=== PATIENT | female | born 1980 | race Caucasian/White ===

== ENCOUNTER 2020-04-25 05:15 | Inpatient (IN) | payer OTHER ==
[2020-04-25 06:30] LABS: BASO % 0.1 % (0-2.0); EOS % 0.1 % (0-4.5); HEMATOCRIT 29.5 % (32.4-45.2); HEMOGLOBIN 9.8 GM/dL (10.7-15.3); LYMPH % 9.8 % (8-40); MCH 26.8 pg (25.7-33.7); MCHC 33.2 g/dl (32.0-36.0); MEAN CELL VOLUME 80.9 fl (80-96); MEAN PLT VOLUME 8.6 fl (7.5-11.1); MONO % 3.3 % (3.8-10.2); NEUT % 86.7 % (42.8-82.8); RBC 3.64 M/mm3 (3.60-5.2); RDW 13.7 % (11.6-15.6); WHITE BLOOD COUNT 13.3 K/mm3 (4.0-10.0)
[2020-04-25 06:31] LABS: URINE APPEARANCE CLEAR; URINE BILIRUBIN NEGATIVE (NEGATIVE); URINE COLOR YELLOW; URINE GLUCOSE (UA) NEGATIVE (NEGATIVE); URINE KETONE 4+ (NEGATIVE); URINE LEUK ESTERASE NEGATIVE (NEGATIVE); URINE NITRITE NEGATIVE (NEGATIVE); URINE PROTEIN TRACE (NEGATIVE)
--- NOTE | 2020-04-25 06:40 | PD.OB.PROG ---
Past Medical History - Primary Care Physician Documenting Provider Type: Laborist - Admission Chief Complaint: [id number] weeks , abdominal and back pain History of Present Illness: 40 yo f 30 weeks c/o RT flank and upper abdominal pain since 11 pm last night , had 2 episode of n/v , no diarrhea, no dysuria, no hematuria, no fever , had chills ,no contractions or vaginal bleeding no loss of smell, no cough , no soar throat, no travel recently History Source: Patient Limitations to Obtaining History: No Limitations - Nursing Documentation Nursing Documentation Reviewed: Yes - Past Medical History ...: 2 ...Para: 0 ...Spon : 1 - Smoking History Have you smoked in the past 12 months: No - Alcohol/Substance Use Hx Alcohol Use: No History of Substance Use: reports: None - Social History Usual Living Arrangement: With Spouse History of Recent Travel: No Review of Systems - Review of Systems Constitutional: reports: Chills Eyes: reports: No Symptoms HENT: reports: No Symptoms Neck: reports: No Symptoms Cardiovascular: reports: No Symptoms Respiratory: reports: No Symptoms Gastrointestinal: reports: Abdominal Pain, Vomiting Genitourinary: reports: No Symptoms Breasts: reports: No Symptoms Reported Musculoskeletal: reports: No Symptoms Integumentary: reports: No Symptoms Neurological: reports: No Symptoms Endocrine: reports: No Symptoms Hematology/Lymphatic: reports: No Symptoms Psychiatric: reports: No Symptoms Physical Exam - Obstetrical Constitutional: Yes: Obese - Abdominal Exam/OB Fundal Height: 30 Number of Fetuses: Single Contractions: No Monitor Mode: External Heart Rate (range): 150/160 Heart Rate Location: [facility] Category: I Accelerations: Non-Uniform Decelerations: None - Vaginal Exam/OB Vaginal Exam Deferred: No Vaginal Bleeding: No Speculum Exam: No Dilatation (cm): closed Effacement (%): 0 Amniotic Membrane Status: Intact Station: -3 - Physical Exam Extremities: Yes: WNL Edema: Yes Edema: LLE: Trace, RLE: Trace Deep Tendon Reflex Grade: Normal +2 Psychiatric: Yes: WNL - Labs Lab Results: CBC, BMP 04/25/20 06:00 Problem List - Problems (1) Abdominal pain affecting Code(s): O26.899 - OTH RELATED CONDITIONS, UNSPECIFIED TRIMESTER; R10.9 - UNSPECIFIED ABDOMINAL PAIN Assessment/Plan r/o Pyelo r/o cholelithiasis r/o gastroenteritis plan cbc. cmp , amylase clean catch U/A and C/S renal and gallbladder sono iv hydration
[2020-04-25] MEDS ORDERED: CITRIC ACID/SODIUM CITRATE 30 ML UNIT-DOSE CUP PO ONE (06:52)
[2020-04-25 06:55] LABS: PLATELET COUNT 302 K/MM3 (134-434)
[2020-04-25] MEDS: ACETAMINOPHEN 1000 MG/100 ML VIAL (NON FORMULARY) IVPB PRN ×2 (07:15→20:20)
[2020-04-25 07:24] LABS: ALBUMIN 2.7 g/dl (3.4-5.0); BILIRUBIN,TOTAL 0.5 mg/dL (0.2-1); BLOOD UREA NITROGEN 9.8 mg/dL (7-18); CALCIUM 9.3 mg/dL (8.5-10.1); CREATININE 0.6 mg/dL (0.55-1.3); POTASSIUM 4.1 mmol/L (3.5-5.1); TOT PROT 6.8 g/dl (6.4-8.2)
[2020-04-25] MEDS ORDERED: BUTORPHANOL TARTRATE 1 MG/ML VIAL IVPB ONE (10:15)
[2020-04-25] MEDS ORDERED: PROMETHAZINE HCL 25 MG/1 ML VIAL IVPB ONE (10:15)
[2020-04-25] MEDS ORDERED: BUTORPHANOL TARTRATE 1 MG/ML VIAL ONE (10:35)
[2020-04-25] MEDS ORDERED: PROMETHAZINE HCL 25 MG/1 ML VIAL ONE (10:35)
[2020-04-25 10:47] VITALS: BMI 35.8
[2020-04-25] MEDS ORDERED: CEFTRIAXONE 1 GM in DEXTROSE 5%-WATER - 50 ML IVPB ONE (11:00)
[2020-04-25 11:51] LABS: EPI CELLS >36 /uL (0-25.1); HYALINE CASTS 10 /uL (0-3.1); URINE BACTERIA 430 /uL (0-1359); URINE RBC 6 /uL (0-23.9); URINE WBC 14 /uL (0-25.8)
[2020-04-25] MEDS ORDERED: ONDANSETRON 4 MG/2 ML VIAL IVPB PRN (14:19)
--- NOTE | 2020-04-25 14:26 | HP ---
Past Medical History - Primary Care Physician PCP:: Len Beard - Admission Chief Complaint: rt flank and upper abdominal pain, 30 weeks History of Present Illness: 40 yo f 30 weeks, c/o Rt flank pain and upper abdominal pain since last night, no dysuria, mo hematuria, had two episode of vomiting, no fever, had chills , no diarrhea no vaginal bleeding , no soar throat or loss of smell , good fm, no contraction, admitted to r/o pyelo History Source: Patient Limitations to Obtaining History: No Limitations - Past Medical History ...: 2 ...Para: 0 ...Term: 0 ...: 0 ...Spon : 1 ...Induced : 1 ...Living Children: 0 ...EDC by Sono: 07/02/20 Heme/Onc: Yes: Anemia - Past Surgical History Hx Myomectomy: No Hx Transabdominal Cerclage: No - Smoking History Smoking history: Never smoked Have you smoked in the past 12 months: No - Alcohol/Substance Use Hx Alcohol Use: No History of Substance Use: reports: None - Social History Usual Living Arrangement: Yes: With Spouse History of Recent Travel: No Home Medications - Allergies Allergies/Adverse Reactions: Allergies Allergy/AdvReac Type Severity Reaction Status Date / Time No Known Allergies Allergy Verified 04/25/20 11:22 - Home Medications Home Medications: Ambulatory Orders Tablet 1 tablet PO DAILY 04/25/20 Review of Systems - Review of Systems Constitutional: reports: Chills Eyes: reports: No Symptoms HENT: reports: No Symptoms Neck: reports: No Symptoms Respiratory: reports: No Symptoms Gastrointestinal: reports: Abdominal Pain, Vomiting Breasts: reports: No Symptoms Reported Musculoskeletal: reports: No Symptoms Integumentary: reports: No Symptoms Neurological: reports: No Symptoms Endocrine: reports: No Symptoms Hematology/Lymphatic: reports: No Symptoms Psychiatric: reports: No Symptoms Physical Exam - Maternity Vital Signs: Vital Signs Temperature 98.7 F 04/25/20 13:00 Pulse Rate 82 04/25/20 13:00 Respiratory Rate 18 04/25/20 13:00 Blood Pressure 104/61 04/25/20 13:00 O2 Sat by Pulse Oximetry (%) Constitutional: Yes: Moderate Distress Eyes: Yes: WNL HENT: Yes: WNL Neck: Yes: WNL Cardiovascular: Yes: WNL Lungs: Clear to auscultation Breast(s): Yes: WNL - Abdominal Exam/OB Fundal Height: 30 Number of Fetuses: Single Presentation: Vertex Contractions: No Intensity: Unaware Monitor Mode: External Heart Rate Location: [facility] Category: I Accelerations: Non-Uniform - Vaginal Exam/OB Vaginal Bleeding: No Speculum Exam: No Dilatation (cm): closed Effacement (%): 0 Amniotic Membrane Status: Intact Presentation: Vertex/Position Station: -4 - Physical Exam Musculoskeletal: Yes: WNL Extremities: Yes: WNL Edema: Yes Edema: LLE: Trace, RLE: Trace Deep Tendon Reflex Grade: Normal +2 Psychiatric: Yes: WNL - Labs Lab Results: CBC, BMP 04/25/20 06:00 04/25/20 06:00 Hemorrhage Risk Assessment - Risk Factors Medium Risk Factors: Yes: None High Risk Factors: Yes: None Risk Score: 1 Risk Level: Medium Risk Problem List - Problems (1) Abdominal pain affecting Code(s): O26.899 - OTH RELATED CONDITIONS, UNSPECIFIED TRIMESTER; R10.9 - UNSPECIFIED ABDOMINAL PAIN (2) Pyelonephritis affecting Code(s): O23.00 - INFECTIONS OF KIDNEY IN , UNSPECIFIED TRIMESTER Qualifiers: Trimester: third trimester Qualified Code(s): O23.03 - Infections of kidney in , third trimester Assessment/Plan admit U/A .C/S iv antibiotics revaluation FHM pain management
[2020-04-25] MEDS: DEXTROSE 5%-LACTATED RINGERS 1,000 ML IV SCH (20:21)
[2020-04-25] MEDS: oxyCODONE HCL 5 MG TABLET PO PRN (21:53)
[2020-04-26] MEDS: ACETAMINOPHEN 1000 MG/100 ML VIAL (NON FORMULARY) IVPB PRN (04:54)
[2020-04-26 08:27] LABS: BASO % 0.2 % (0-2.0); EOS % 0.9 % (0-4.5); HEMATOCRIT 26.9 % (32.4-45.2); HEMOGLOBIN 8.9 GM/dL (10.7-15.3); MCH 26.6 pg (25.7-33.7); MCHC 32.9 g/dl (32.0-36.0); MEAN CELL VOLUME 80.9 fl (80-96); MEAN PLT VOLUME 8.4 fl (7.5-11.1); MONO % 8.1 % (3.8-10.2); NEUT % 74.8 % (42.8-82.8); PLATELET COUNT 262 K/MM3 (134-434); RBC 3.33 M/mm3 (3.60-5.2); RDW 14.2 % (11.6-15.6); WHITE BLOOD COUNT 11.3 K/mm3 (4.0-10.0)
[2020-04-26] MEDS: oxyCODONE HCL 5 MG TABLET PO PRN (08:30)
[2020-04-26 08:59] LABS: ALBUMIN 2.3 g/dl (3.4-5.0); BILIRUBIN,TOTAL 0.6 mg/dL (0.2-1); BLOOD UREA NITROGEN 6.3 mg/dL (7-18); CALCIUM 8.9 mg/dL (8.5-10.1); CREATININE 0.5 mg/dL (0.55-1.3); POTASSIUM 3.9 mmol/L (3.5-5.1); TOT PROT 6.1 g/dl (6.4-8.2)
[2020-04-26] MEDS ORDERED: cefTRIAXone SODIUM 1 GM VIAL ONE (09:44)
[2020-04-26] MEDS ORDERED: DEXTROSE 5%-WATER - 50 ML IVPB ONE (09:45)
[2020-04-26] MEDS: CEFTRIAXONE 1 GM in DEXTROSE 5%-WATER - 50 ML IVPB SCH (09:49)
[2020-04-26] MEDS: PRENATAL VITAMINS W/ FOLIC ACID TABLET (FP) PO SCH (09:54)
--- NOTE | 2020-04-26 12:33 | PN ---
Progress Note (short form) - Note Progress Note: HD1 , feels much better, but still has mild flank pain , no dysuria, no hematuria, no n/v, no contraction, no vaginal bleeding Last Vital Signs Temp Pulse Resp BP Pulse Ox 98.1 F 90 18 92/61 98 04/26/20 08:46 04/26/20 08:46 04/26/20 08:46 04/26/20 08:46 04/25/20 22:00 CBC, BMP 04/26/20 07:54 04/26/20 07:54 abdomen soft, no distension , mild RT cva tenderness , BS present uterus non tender , no contraction felt NST reactive no contraction urine culture pending abdominal sono , positve for gallbladder sluge , renal normal bpp8/8 plan cont iv antibiotics , pending result of urine c/s iron and pnv for anemia pain management nst twice daily ambulate Problem List - Problems (1) Abdominal pain affecting Code(s): O26.899 - OTH RELATED CONDITIONS, UNSPECIFIED TRIMESTER; R10.9 - UNSPECIFIED ABDOMINAL PAIN (2) Pyelonephritis affecting Code(s): O23.00 - INFECTIONS OF KIDNEY IN , UNSPECIFIED TRIMESTER Qualifiers: Trimester: third trimester Qualified Code(s): O23.03 - Infections of kidney in , third trimester
[2020-04-26] MEDS ORDERED: ACETAMINOPHEN INJECTION 100 ML IVPB ONE (13:13)
[2020-04-26] MEDS: ACETAMINOPHEN 325 MG TABLET (FP) PO PRN ×2 (13:43→20:17)
[2020-04-26] MEDS: DEXTROSE 5%-LACTATED RINGERS 1,000 ML IV SCH (15:37)
[2020-04-27] MEDS: ACETAMINOPHEN 325 MG TABLET (FP) PO PRN ×2 (02:19→08:25)
[2020-04-27] MEDS ORDERED: cefTRIAXone SODIUM 1 GM VIAL ONE (09:26)
[2020-04-27] MEDS ORDERED: DEXTROSE 5%-WATER - 50 ML IVPB ONE (09:26)
[2020-04-27] MEDS: CEFTRIAXONE 1 GM in DEXTROSE 5%-WATER - 50 ML IVPB SCH (09:29)
[2020-04-27] MEDS: oxyCODONE HCL 5 MG TABLET PO PRN (09:35)
[2020-04-27 10:02] VITALS: BP 91/62; PULSE 93; TEMP 97.6
[2020-04-27 11:52] LABS: BASO % 0.2 % (0-2.0); EOS % 1.9 % (0-4.5); HEMATOCRIT 29.2 % (32.4-45.2); HEMOGLOBIN 9.4 GM/dL (10.7-15.3); LYMPH % 16.4 % (8-40); MCH 26.6 pg (25.7-33.7); MCHC 32.3 g/dl (32.0-36.0); MEAN CELL VOLUME 82.2 fl (80-96); MEAN PLT VOLUME 8.6 fl (7.5-11.1); MONO % 7.8 % (3.8-10.2); NEUT % 73.7 % (42.8-82.8); PLATELET COUNT 292 K/MM3 (134-434); RBC 3.56 M/mm3 (3.60-5.2); RDW 14.3 % (11.6-15.6); WHITE BLOOD COUNT 12.5 K/mm3 (4.0-10.0)
[2020-04-27 12:23] LABS: ALBUMIN 2.5 g/dl (3.4-5.0); BILIRUBIN,TOTAL 0.5 mg/dL (0.2-1); BLOOD UREA NITROGEN 5.8 mg/dL (7-18); CREATININE 0.5 mg/dL (0.55-1.3); POTASSIUM 3.8 mmol/L (3.5-5.1); TOT PROT 6.7 g/dl (6.4-8.2)
[2020-04-27] MEDS: PRENATAL VITAMINS W/ FOLIC ACID TABLET (FP) PO SCH (12:23)
--- NOTE | 2020-04-28 08:03 | DS ---
Physical Exam-PEDIATRIC CNS Vital Signs: Vital Signs Temperature 97.6 F 04/27/20 09:00 Pulse Rate 93 H 04/27/20 09:00 Respiratory Rate 18 04/27/20 09:00 Blood Pressure 91/62 04/27/20 09:00 O2 Sat by Pulse Oximetry (%) 98 04/25/20 22:00 Constitutional: Yes: Well Nourished, No Distress, Calm Eyes: Yes: WNL, Conjunctiva Clear, EOM Intact HENT: Yes: WNL, Atraumatic, Normocephalic Neck: Yes: WNL, Supple, Trachea Midline Cardiovascular: Yes: WNL, Regular Rate and Rhythm Respiratory: Yes: WNL, Regular, CTA Bilaterally Gastrointestinal: Yes: WNL ...Rectal Exam: Yes: WNL Renal/: Yes: WNL External Genitalia: Yes: Normal Vaginal Exam: Yes: Normal Cervix: Yes: Normal Uterus: Yes: Other (30 weeks, non tender, no contraction felt) Breast(s): Yes: WNL Musculoskeletal: Yes: WNL Extremities: Yes: WNL Edema: LLE: Trace, RLE: Trace Integumentary: Yes: WNL Neurological: Yes: WNL, Alert, Oriented ...Motor Strength: WNL Psychiatric: Yes: WNL, Alert, Oriented Labs: CBC, BMP 04/27/20 11:15 04/27/20 11:15 Discharge Summary Problems reviewed: Yes Reason For Visit: PYELONEPHRITIS abdominal , Rt flank pain Hospital Course: txed with Rocephin , improved Plan of Treatment: followup office on Tuesday Condition: Good - Instructions Diet, Activity, Other Instructions: regular diet, follow up office on Tuesday, if fever, pain, N/V call Referrals: Len Beard MD [Staff Physician] - Disposition: HOME - Home Medications Comprehensive Discharge Medication List: Ambulatory Orders Tablet 1 tablet PO DAILY 04/25/20 Amoxicillin 875 mg PO BID #10 tablet 04/27/20 Amoxicillin 875 mg PO BID #10 tablet 04/27/20 Ferrous Sulfate 325 mg PO BID 90 Days #180 tablet 04/27/20
== END 2020-04-27 15:30 | disposition home or self-care (01) | DRG 833 ==
LOC: JDEL 05:15 → JLDR 10:00 → J3W 14:00
PROVIDERS: ADMIT Obstetrics & Gynecology; ATTEND Obstetrics & Gynecology
DX: O23.03 Infections of kidney in pregnancy, third trimester (principal); O26.893 Other specified pregnancy related conditions, third trimester; R10.10 Upper abdominal pain, unspecified; R11.2 Nausea with vomiting, unspecified; O99.013 Anemia complicating pregnancy, third trimester; D64.9 Anemia, unspecified; Z3A.30 30 weeks gestation of pregnancy
CPT/HCPCS: 36415; 76700-TC; 76775-TC; 76815; 80053; 81003; 82150; 83690; 85025; 87040; 87086; J0131; U0003

== ENCOUNTER 2020-06-26 22:54 | Inpatient (IN) | payer OTHER ==
[2020-06-27 00:50] VITALS: BMI 38.4
[2020-06-27 02:21] LABS: BASO % 0.3 % (0-2.0); EOS % 1.6 % (0-4.5); HEMATOCRIT 32.2 % (32.4-45.2); HEMOGLOBIN 10.7 GM/dL (10.7-15.3); LYMPH % 27.1 % (8-40); MCH 27.5 pg (25.7-33.7); MCHC 33.3 g/dl (32.0-36.0); MEAN CELL VOLUME 82.5 fl (80-96); MEAN PLT VOLUME 9.7 fl (7.5-11.1); MONO % 6.9 % (3.8-10.2); NEUT % 64.1 % (42.8-82.8); PLATELET COUNT 247 K/MM3 (134-434); RBC 3.91 M/mm3 (3.60-5.2); RDW 17.3 % (11.6-15.6)
[2020-06-27 02:35] LABS: INR 0.93 (0.83-1.09)
[2020-06-27] MEDS ORDERED: PROMETHAZINE HCL 25 MG/1 ML VIAL IVPUSH ONE (02:40)
[2020-06-27] MEDS ORDERED: BUTORPHANOL TARTRATE 1 MG/ML VIAL IVPUSH ONE (02:40)
[2020-06-27 02:43] LABS: BLOOD UREA NITROGEN 15.4 mg/dL (7-18); CALCIUM 9.1 mg/dL (8.5-10.1); CREATININE 0.7 mg/dL (0.55-1.3); POTASSIUM 4.1 mmol/L (3.5-5.1)
[2020-06-27] MEDS ORDERED: DEXTROSE 5%-LACTATED RINGERS 1,000 ML IV SCH (02:45)
[2020-06-27] MEDS ORDERED: OXYTOCIN 30 UNITS in 0.9% NS 30 UNIT/500 ML INFUS.BAG IVPB SCH (02:45)
--- NOTE | 2020-06-27 02:47 | HP ---
Past Medical History - Primary Care Physician PCP:: Len Beard - Admission Chief Complaint: 39 weeks, ROM, labor, AMA History of Present Illness: 40 yo f 39 weeks with c/o of lekage of fluid from vagina and contraction, , History Source: Patient Limitations to Obtaining History: No Limitations - Past Medical History ...: 2 ...Para: 0 ...Term: 0 ...: 0 ...Spon : 0 ...Induced : 1 ...Living Children: 0 ...LMP: 09/27/19 ... Weeks Gestation by Dates: 39.1 ...EDC by Dates: 07/03/20 ...EDC by Sono: 07/02/20 Heme/Onc: Yes: Anemia - Past Surgical History Hx Myomectomy: No Hx Transabdominal Cerclage: No - Smoking History Smoking history: Never smoked Have you smoked in the past 12 months: No - Alcohol/Substance Use Hx Alcohol Use: No History of Substance Use: reports: None - Social History Usual Living Arrangement: Yes: With Spouse History of Recent Travel: No Home Medications - Allergies Allergies/Adverse Reactions: Allergies Allergy/AdvReac Type Severity Reaction Status Date / Time No Known Allergies Allergy Verified 04/25/20 11:22 - Home Medications Home Medications: Ambulatory Orders Tablet 1 tablet PO DAILY 04/25/20 Ferrous Sulfate 325 mg PO BID 90 Days #180 tablet 04/27/20 Review of Systems - Review of Systems Constitutional: reports: No Symptoms Eyes: reports: No Symptoms HENT: reports: No Symptoms Neck: reports: No Symptoms Cardiovascular: reports: No Symptoms Respiratory: reports: No Symptoms Gastrointestinal: reports: No Symptoms Genitourinary: reports: No Symptoms Breasts: reports: No Symptoms Reported Musculoskeletal: reports: No Symptoms Integumentary: reports: No Symptoms Neurological: reports: No Symptoms Endocrine: reports: No Symptoms Hematology/Lymphatic: reports: No Symptoms Psychiatric: reports: No Symptoms Physical Exam - Maternity Vital Signs: Vital Signs Temperature 98.3 F 06/27/20 00:40 Pulse Rate 89 06/27/20 00:40 Respiratory Rate 18 06/27/20 00:40 Blood Pressure 133/75 06/27/20 00:40 O2 Sat by Pulse Oximetry (%) Constitutional: Yes: Obese Eyes: Yes: WNL, Conjunctiva Clear, EOM Intact HENT: Yes: WNL, Atraumatic, Normocephalic Neck: Yes: WNL, Supple, Trachea Midline Cardiovascular: Yes: WNL, Regular Rate and Rhythm Breast(s): Yes: WNL - Abdominal Exam/OB Fundal Height: 38 Number of Fetuses: Single Presentation: Vertex Contractions: Yes Regularity: Irregular Intensity: Mild/Mod Monitor Mode: External Heart Rate Location: [facility] Category: I Accelerations: Non-Uniform Decelerations: None - Vaginal Exam/OB Vaginal Bleeding: No Speculum Exam: No Dilatation (cm): 1 Effacement (%): 50 Amniotic Membrane Status: Leaking Nitrazine Test: Positive Presentation: Vertex/Position Station: -3 - Physical Exam Musculoskeletal: Yes: WNL Extremities: Yes: WNL Edema: Yes Edema: LLE: Trace, RLE: Trace Deep Tendon Reflex Grade: Normal +2 ...Motor Strength: WNL Psychiatric: Yes: WNL - Labs Lab Results: CBC, BMP 06/27/20 01:45 Hemorrhage Risk Assessment - Risk Factors Medium Risk Factors: Yes: None High Risk Factors: Yes: None Risk Score: 1 Risk Level: Medium Risk Problem List - Problems (1) with 39 completed weeks gestation Code(s): Z3A.39 - 39 WEEKS GESTATION OF (2) ROM (rupture of membranes), premature Code(s): O42.90 - ALISE ROM, 7TH0 BETW RUPT & ONST LABR, UNSP WEEKS OF GEST Qualifiers: PROM onset of labor timing: unspecified duration between rupture of membranes and onset of labor PROM gestational age: full term Qualified Code(s): O42.92 - Full-term premature rupture of membranes, unspecified as to length of time between rupture and onset of labor (3) AMA (advanced maternal age) multigravida 35+ Code(s): O09.529 - SUPERVISION OF ELDERLY MULTIGRAVIDA, UNSPECIFIED TRIMESTER (4) AMA (advanced maternal age) primigravida 35+ Code(s): O09.519 - SUPERVISION OF ELDERLY PRIMIGRAVIDA, UNSPECIFIED TRIMESTER Qualifiers: Trimester: third trimester Qualified Code(s): O09.513 - Supervision of elderly primigravida, third trimester Assessment/Plan admit fhm pitocin stimulation, pain management
[2020-06-27] MEDS ORDERED: PROMETHAZINE HCL 25 MG/1 ML VIAL ONE (03:13)
[2020-06-27] MEDS ORDERED: BUTORPHANOL TARTRATE 2 MG/ML VIAL ONE (03:13)
[2020-06-27] MEDS: ELECTROLYTE-148 SOLN 1,000 ML IV SCH ×2 (07:30→10:42)
[2020-06-27] MEDS ORDERED: FENTANYL/BUPIVACAINE/NS/PF - PCEA - 50 ML DISP.SYRIN EP ONE ×4 (07:34→17:41)
[2020-06-27] MEDS ORDERED: PCA PUMP NR ONE ×2 (07:34→21:06)
[2020-06-27] MEDS ORDERED: NALOXONE HCL 0.4 MG/ML VIAL IVPUSH PRN (07:41)
[2020-06-27] MEDS ORDERED: LIDO 2%/EPI 1:200000 PRESRVFRE (20 ML SDVIAL) ONE (07:44)
[2020-06-27] MEDS ORDERED: FENTANYL/BUPIVACAINE/NS/PF - PCEA - 50 ML DISP.SYRIN EP SCH (07:45)
--- NOTE | 2020-06-27 08:01 | PN ---
Progress Note (short form) - Note Progress Note: cx 4 cm 80 vx -3 mr ,fhr cat 1, regular contraction, wants epidural Problem List - Problems (1) with 39 completed weeks gestation Code(s): Z3A.39 - 39 WEEKS GESTATION OF (2) ROM (rupture of membranes), premature Code(s): O42.90 - ALISE ROM, 7TH0 BETW RUPT & ONST LABR, UNSP WEEKS OF GEST Qualifiers: PROM onset of labor timing: unspecified duration between rupture of membranes and onset of labor PROM gestational age: full term Qualified Code(s): O42.92 - Full-term premature rupture of membranes, unspecified as to length of time between rupture and onset of labor (3) AMA (advanced maternal age) multigravida 35+ Code(s): O09.529 - SUPERVISION OF ELDERLY MULTIGRAVIDA, UNSPECIFIED TRIMESTER (4) AMA (advanced maternal age) primigravida 35+ Code(s): O09.519 - SUPERVISION OF ELDERLY PRIMIGRAVIDA, UNSPECIFIED TRIMESTER Qualifiers: Trimester: third trimester Qualified Code(s): O09.513 - Supervision of elderly primigravida, third trimester
--- NOTE | 2020-06-27 11:25 | PN ---
Ante-Partal Exam - Subjective Subjective: No complaints. The epidural was replaced. Vital Signs: Vital Signs Temperature 97.9 F 06/27/20 02:00 Pulse Rate 75 06/27/20 08:15 Respiratory Rate 20 06/27/20 08:15 Blood Pressure 119/65 06/27/20 08:15 O2 Sat by Pulse Oximetry (%) 99 06/27/20 08:15 Bleeding: No Headache: No Visual changes: No Right upper quadrant pain: No Pain (scale 1-10): 0 - Contractions Contractions: Yes Regularity: Regular Intensity: Mild/Mod Monitor Mode: External - Exam during Labor Heart Rate: 150 Variability: Moderate Heart Rate Location: Midline Category: I Monitor Accelerations: Present Monitor Decelerations: None Exam: Vaginal Dilatation (cm): 4 Effacement (%): 80 Amniotic Membrane Status: Leaking Amniotic Fluid: Clear Presentation: Vertex Station: 0 Remarks: Gynecoid pelvimetry, EFW 3700 gram by Romeo maneuvers. - Intrapartum Hemorrhage Risk Medium Risk Factors: None High Risk Factors: None Risk Score: 0 Risk Level: Low Risk - Assessment/Plan Assessment/Plan: 40yo P0 with at EGA 39wks admitted with PROM undergoing labor indx w/pitocin. The pitocin is now at 10 mU. pt is comfortable with epidural. Labor in early active phase with protracted progress. Plan to continue pitocin. Fetus with Category I tracing and requires no intervention.
[2020-06-27] MEDS ORDERED: BUPIVACAINE HCL/PF 0.25% (2.5MG/ML) 10 ML VIAL ONE ×2 (15:10→17:07)
--- NOTE | 2020-06-27 16:21 | PN ---
Ante-Partal Exam - Subjective Subjective: Pt with pelvic pressure. Vital Signs: Vital Signs Temperature 98.3 F 06/27/20 14:00 Pulse Rate 97 H 06/27/20 15:45 Respiratory Rate 20 06/27/20 15:45 Blood Pressure 125/84 06/27/20 15:45 O2 Sat by Pulse Oximetry (%) 100 06/27/20 15:45 Bleeding: No Headache: No Visual changes: No Right upper quadrant pain: No Pain (scale 1-10): 2 - Contractions Contractions: Yes (q3min) Regularity: Regular Intensity: Moderate Monitor Mode: External - Exam during Labor Heart Rate: 150 Variability: Moderate Heart Rate Location: Midline Category: I Monitor Accelerations: Present Monitor Decelerations: None Exam: Vaginal Dilatation (cm): 6 Effacement (%): 90 Amniotic Membrane Status: Leaking Amniotic Fluid: Clear Presentation: Vertex Station: 0 Remarks: Adequate gynecoid pelvimetry. - Intrapartum Hemorrhage Risk Medium Risk Factors: None High Risk Factors: None Risk Score: 0 Risk Level: Low Risk - Assessment/Plan Assessment/Plan: 40yo P0 with at EGA 39 wks progressed to active phase of pabor. The pt has a protracted labor course. The contractions appear adequate. The tracing is Category I. Plan to monitor labor progress.
[2020-06-27] MEDS: ACETAMINOPHEN 1000 MG/100 ML VIAL (NON FORMULARY) IVPB PRN (18:25)
[2020-06-27] MEDS ORDERED: ACETAMINOPHEN INJECTION 100 ML IVPB ONE (18:26)
[2020-06-27] MEDS ORDERED: AMPICILLIN - 2 GM in SODIUM CHLORIDE 100 ML IVPB SCH (18:30)
[2020-06-27] MEDS ORDERED: AMPICILLIN SODIUM 2 GM VIAL ONE (18:37)
--- NOTE | 2020-06-27 18:37 | PN ---
Ante-Partal Exam - Subjective Subjective: No complaints Vital Signs: Vital Signs Temperature 100.1 F H 06/27/20 18:24 Pulse Rate 93 H 06/27/20 18:15 Respiratory Rate 20 06/27/20 18:15 Blood Pressure 127/66 06/27/20 18:15 O2 Sat by Pulse Oximetry (%) 100 06/27/20 18:15 Bleeding: No Headache: No Visual changes: No Right upper quadrant pain: No Pain (scale 1-10): 0 - Contractions Contractions: Yes Regularity: Regular Intensity: Mod/Strong Monitor Mode: External - Exam during Labor Heart Rate: 170 Variability: Moderate Heart Rate Location: Midline Category: I Monitor Accelerations: Present Monitor Decelerations: None Exam: Vaginal Dilatation (cm): 7 Effacement (%): 90 Amniotic Membrane Status: Leaking Amniotic Fluid: Clear Presentation: Vertex Station: +1 - Intrapartum Hemorrhage Risk Medium Risk Factors: None High Risk Factors: None Risk Score: 0 Risk Level: Low Risk - Assessment/Plan Assessment/Plan: P0 with protracted active labor. Possible early chorio. Will start IV abx and Tylenol. Continue to monitor labor progress.
[2020-06-27] MEDS ORDERED: GENTAMICIN 80 MG PREMIXED IVPB 80 MG/100 ML BAG IVPB SCH (19:00)
[2020-06-27] MEDS ORDERED: GENTAMICIN SO4 80 MG/2 ML VIAL ONE (19:19)
[2020-06-27] MEDS ORDERED: WITCH HAZEL 50% (TUCKS) 40 PAD/JAR PAD TP PRN (20:58)
[2020-06-27] MEDS ORDERED: METHYLERGONOVINE MALEATE 0.2 MG/1 ML AMP IM PRN (20:58)
[2020-06-27] MEDS ORDERED: BENZOCAINE 20% 57 GM BOTTLE TP PRN (20:58)
[2020-06-27] MEDS ORDERED: BISACODYL 10 MG SUPP.RECT RC PRN (20:58)
[2020-06-27] MEDS ORDERED: BENZOCAINE 28 GM HEMORRHOIDAL OINTMENT TP PRN (20:58)
[2020-06-27] MEDS ORDERED: OXYTOCIN 20 UNITS in 0.9% NS 20 UNIT/1,000 ML INFUS.BAG IV SCH (21:00)
[2020-06-27] MEDS ORDERED: CLINDAMYCIN PHOSPHATE 600 MG/4 ML VIAL ONE (21:05)
[2020-06-27] MEDS ORDERED: OXYTOCIN 20 UNITS in 0.9% NS 20 UNIT/1,000 ML INFUS.BAG IV ONE (22:05)
[2020-06-27] MEDS ORDERED: IBUPROFEN 600 MG TABLET (FP) PO ONE (23:21)
[2020-06-27] MEDS ORDERED: ACETAMINOPHEN 325 MG TABLET (FP) ONE (23:22)
[2020-06-27] MEDS: ACETAMINOPHEN 325 MG TABLET (FP) PO PRN (23:26)
[2020-06-27] MEDS: IBUPROFEN 600 MG TABLET (FP) PO PRN (23:29)
[2020-06-27 23:35] LABS: CORD BASE EXCESS -9.5 mmol/L (0-2); CORD HCO3 19.9 mmHg (20-29); CORD PCO2 57.5 mmHg (30-78); CORD pH 7.157 (7.14-7.44)
[2020-06-27 23:38] LABS: CORD HCO3 19.7 mmHg (20-29); CORD PCO2 44.2 mmHg (30-78); CORD pH 7.268 (7.14-7.44)
[2020-06-28] MEDS: AMPICILLIN - 2 GM in SODIUM CHLORIDE 100 ML IVPB SCH ×4 (02:05→14:31)
[2020-06-28] MEDS: GENTAMICIN 80 MG PREMIXED IVPB 80 MG/100 ML BAG IVPB SCH ×3 (02:06→09:56)
[2020-06-28] MEDS: CLINDAMYCIN 600MG PREMIX IVPB 600 MG/50 ML BAG IVPB SCH ×3 (02:08→17:36)
[2020-06-28] MEDS: ACETAMINOPHEN 1000 MG/100 ML VIAL (NON FORMULARY) IVPB PRN (08:00)
[2020-06-28 08:46] LABS: BASO % 0.2 % (0-2.0); EOS % 0.6 % (0-4.5); MCH 27.7 pg (25.7-33.7); MCHC 33.3 g/dl (32.0-36.0); MEAN CELL VOLUME 83.1 fl (80-96); MEAN PLT VOLUME 9.4 fl (7.5-11.1); MONO % 4.8 % (3.8-10.2); NEUT % 81.4 % (42.8-82.8); PLATELET COUNT 214 K/MM3 (134-434); RBC 3.25 M/mm3 (3.60-5.2); RDW 17.8 % (11.6-15.6); WHITE BLOOD COUNT 19.5 K/mm3 (4.0-10.0)
[2020-06-28] MEDS: PRENATAL VITAMINS W/ FOLIC ACID TABLET (FP) PO SCH (09:53)
[2020-06-28] MEDS: IBUPROFEN 600 MG TABLET (FP) PO PRN ×2 (11:52→20:57)
[2020-06-28] MEDS: ACETAMINOPHEN 325 MG TABLET (FP) PO PRN (20:58)
[2020-06-28] MEDS ORDERED: SENNOSIDES/DOCUSATE COMBO (SENNA PLUS) TABLET (UD) PO PRN (22:00)
[2020-06-29] MEDS: IBUPROFEN 600 MG TABLET (FP) PO PRN (09:14)
[2020-06-29] MEDS: PRENATAL VITAMINS W/ FOLIC ACID TABLET (FP) PO SCH (09:14)
--- NOTE | 2020-06-29 11:22 | PN ---
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 Manual removal of placenta was done due to failure of placenta to deliver spontaneously and heavy bleeding noted after ~20 minutes from delivery. The bimanual uterine massage was done immediately after the manual placental delivery. The uterus was noted to be firm and well contracted, excellent hemostasis. A 2nd degree perineal/vaginal laceration was repaired w/o complications.
--- NOTE | 2020-06-29 11:28 | PN ---
Post Progress Note - Subjective Subjective: Patient without acute complaints. Reports tolerating oral intake without nausea or vomiting. Ambulating without dizziness. Denies fevers or chills. Pain well controlled with oral pain medication. Pumping/breast feeding without issue. Passing flatus, no BM. Reports feels constipated Post Day: 2 Type of Delivery: Vital Signs: Vital Signs Temperature 98.8 F 06/28/20 22:00 Pulse Rate 96 H 06/28/20 22:00 Respiratory Rate 18 06/28/20 22:00 Blood Pressure 100/62 06/28/20 22:00 O2 Sat by Pulse Oximetry (%) 100 06/28/20 17:38 Breast Exam: Yes: Soft Uterus: Yes: Fundus Firm, Fundus below umbilicus Abdomen/GI: Yes: Abdomen soft Lochia: Yes: Rubra Lochia, amount: Small Extremities: Yes: Calves non-tender, Edema (trace) Perineum: Yes: Laceration (repair intact) Activity: Ambulating - Labs Labs: CBC WBC 19.5 K/mm3 (4.0-10.0) H 06/28/20 07:39 RBC 3.25 M/mm3 (3.60-5.2) L 06/28/20 07:39 Hgb 9.0 GM/dL (10.7-15.3) L 06/28/20 07:39 Hct 27.0 % (32.4-45.2) L D 06/28/20 07:39 MCV 83.1 fl (80-96) 06/28/20 07:39 MCH 27.7 pg (25.7-33.7) 06/28/20 07:39 MCHC 33.3 g/dl (32.0-36.0) 06/28/20 07:39 RDW 17.8 % (11.6-15.6) H 06/28/20 07:39 Plt Count 214 K/MM3 (134-434) 06/28/20 07:39 MPV 9.4 fl (7.5-11.1) 06/28/20 07:39 Absolute Neuts (auto) 15.9 K/mm3 (1.5-8.0) H 06/28/20 07:39 Neutrophils % 81.4 % (42.8-82.8) D 06/28/20 07:39 Lymphocytes % 13.0 % (8-40) D 06/28/20 07:39 Monocytes % 4.8 % (3.8-10.2) 06/28/20 07:39 Eosinophils % 0.6 % (0-4.5) 06/28/20 07:39 Basophils % 0.2 % (0-2.0) 06/28/20 07:39 Nucleated RBC % 0 % (0-0) 06/28/20 07:39 Assessment/Plan 40yo P1 s/p , doing well stable, afebrile. Asymptomatic for anemia. care instructions reviewed. Continue routine care. Ambulation encouraged Discharge instruction reviewed.
--- NOTE | 2020-06-29 11:31 | DS ---
Physical Exam-SENIOR DENTIST Vital Signs: Vital Signs Temperature 98.8 F 06/28/20 22:00 Pulse Rate 96 H 06/28/20 22:00 Respiratory Rate 18 06/28/20 22:00 Blood Pressure 100/62 06/28/20 22:00 O2 Sat by Pulse Oximetry (%) 100 06/28/20 17:38 Constitutional: Yes: Well Nourished, No Distress, Calm Eyes: Yes: WNL, Conjunctiva Clear, EOM Intact HENT: Yes: WNL, Atraumatic, Normocephalic Neck: Yes: WNL, Supple, Trachea Midline Cardiovascular: Yes: WNL, Regular Rate and Rhythm Respiratory: Yes: WNL, Regular, CTA Bilaterally Gastrointestinal: Yes: WNL, Normal Bowel Sounds, Soft, Abdomen, Obese ...Rectal Exam: Yes: Deferred Renal/: Yes: WNL Internal Exam Deferred: Yes ....Post : Yes: Uterus firm, Uterus non-tender, Slight lochia rubra Breast(s): Yes: WNL Musculoskeletal: Yes: WNL Extremities: Yes: WNL Edema: Yes Edema: LLE: Trace, RLE: Trace Integumentary: Yes: WNL Neurological: Yes: WNL, Alert, Oriented ...Motor Strength: WNL Psychiatric: Yes: WNL, Alert, Oriented Labs: CBC, BMP 06/28/20 07:39 06/27/20 01:45 Delivery - Delivery Vaginal Delivery: No Problems, Spontaneous Type of Anesthesia: Local, Epidural Episiotomy/Laceration: Perineal Extension/lac, Vaginal Extension/lac, 2nd degree EBL (cc): 300 Delivery, Single - Stages of Labor Date 1st Stage Initiatied: 06/27/20 Time 1st Stage Initiated: 07:30 Date 2nd Stage Initiated: 06/27/20 Date of Delivery: 06/27/20 Time of Delivery: 20:21 Time Placenta Delivered: 20:40 Placenta: Yes: Manual Removal, Normal Configuration - Condition of Registered Route 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 Manual removal of placenta was done due to failure of placenta to deliver spontaneously and heavy bleeding noted after ~20 minutes from delivery. The bimanual uterine massage was done immediately after the manual placental delivery. The uterus was noted to be firm and well contracted, excellent hemostasis. A 2nd degree perineal/vaginal laceration was repaired w/o complications. Discharge Summary Problems reviewed: Yes Reason For Visit: LABOR ADMIT Current Active Problems AMA (advanced maternal age) multigravida 35+ (Acute) AMA (advanced maternal age) primigravida 35+ (Acute) with 39 completed weeks gestation (Acute) ROM (rupture of membranes), premature (Acute) Procedures: Principal: Spontaneous labor at term Other Procedures: Manual removal of placenta Hospital Course: Normal recovery Health Concerns: anemia Goals: Normal recovery, breast feeding Condition: Good - Instructions Diet, Activity, Other Instructions: Physical activity Resume your normal everyday activity as tolerated no heavy lifting or exercise until seen by your surgeon. You may walk unlimited urmila of and climb stairs. You may resume driving the car when you feel safe and comfortable behind the wheel. No sexual activity as instructed. Wound care If you have a bandage, leave it on, and keep dry for 48-72 hours. After that time discard the outer bandage. If they are tapes on the skin under the out of bandage leave them in place. They will peel off in the next 7 to 10 days. Do Not Peel them off. You may shower the day after surgery. If there are tapes present on the skin, you may shower over them. Diet There are no dietary restrictions. Eat healthy, high-fiber foods. Drink 6 to 8 glasses of liquid each day. This will assist in keeping your bowels are regular. Pain management You may take Tylenol or acetaminophen or Ibuprofen (for example, Motrin, Advil etc.) from my pain prescription medication is ordered should be taken as prescribed for moderate to severe pain. Call MD for any of the following: Severe pain not relieved by medication Fever of 101 or higher Excessive bleeding or drainage on dressing Inability to urinate Referrals: Rudy Collins MD [Staff Physician] - 1 Month Disposition: HOME - Home Medications Comprehensive Discharge Medication List: Ambulatory Orders Tablet 1 tablet PO DAILY 04/25/20 Ferrous Sulfate 325 mg PO BID 90 Days #180 tablet 04/27/20 Prescription Drug Monitoring Program (I-STOP) results: I-STOP not reviewed
[2020-06-29 12:25] VITALS: BP 106/71; PULSE 83; TEMP 98.3
== END 2020-06-29 13:00 | disposition home or self-care (01) | DRG 806 ==
LOC: JDEL 22:54 → JLDR 06-27 00:07 → J3W 06-28 01:05
PROVIDERS: ADMIT Obstetrics & Gynecology; ATTEND Obstetrics & Gynecology
PROC: 3E033VJ Introduction of Other Hormone into Peripheral Vein, Percutaneous Approach (ICD-10-PCS; principal; 2020-06-27)
PROC: 10E0XZZ Delivery of Products of Conception, External Approach (ICD-10-PCS; 2020-06-27)
PROC: 0KQM0ZZ Repair Perineum Muscle, Open Approach (ICD-10-PCS; 2020-06-27)
PROC: 10D17Z9 Manual Extraction of Products of Conception, Retained, Via Natural or Artificial Opening (ICD-10-PCS; 2020-06-27)
PROC: 0W8NXZZ Division of Female Perineum, External Approach (ICD-10-PCS; 2020-06-27)
DX: O42.02 Full-term premature rupture of membranes, onset of labor within 24 hours of rupture (principal); O75.2 Pyrexia during labor, not elsewhere classified; Z37.0 Single live birth; O70.1 Second degree perineal laceration during delivery; Z3A.39 39 weeks gestation of pregnancy; O99.02 Anemia complicating childbirth; D64.9 Anemia, unspecified
CPT/HCPCS: 36415; 36600; 59025; 59409; 80048; 82803; 85025; 85610; 85730; 86780; 86850; 86900; 86901; 87389; J0131; U0003